=== PATIENT | female | born 1990 | race Caucasian/White ===

== ENCOUNTER → 2020-08-08 | Outpatient (CLI) | payer BC ==
--- NOTE | 2020-08-09 04:33 | MR ---
EXAMINATION TYPE: MR shoulder LT wo con DATE OF EXAM: 08/08/2020 COMPARISON: None HISTORY: Pain in left shoulder Multiplanar multiecho imaging of the left shoulder was performed without contrast. Subscapularis tendon is intact. Biceps tendon is intact. Glenoid kristel appear normal. There is narrowing of the subacromial joint space. There is mild subacromial impingement on the supra spinatus tendon. I see no rotator cuff tear. There is no retraction of the supraspinatus tendon. The AC joint is intact. There is no evidence of a fracture. There is no significant shoulder joint effusi on. IMPRESSION: No evidence of rotator cuff tear. There is subacromial joint space narrowing and impingement.
== END | disposition home or self-care (01) ==
LOC: RADMRIMAIN 10:15
PROVIDERS: ATTEND Nurse Practitioner Family
DX: M19.012 Primary osteoarthritis, left shoulder (principal)